=== PATIENT | male | born 1985 | race Caucasian/White ===

== ENCOUNTER 2022-12-16 00:50 | Outpatient (CLI) | payer MEDICAID, SELFPAY ==
--- NOTE | 2022-12-16 | DI.US_ITS ---
Exam(s) US THYROID EXAM: US THYROID CLINICAL HISTORY: THYROID NODULE LEFT E04.1. TECHNIQUE: Ultrasound thyroid performed using standard protocol. COMPARISON: No exams were available for comparison FINDINGS: Both thyroid lobes as well as the isthmus exhibit normal size and echotexture. There are no nodules in either lobe. RIGHT THYROID LOBE: Measures 1.5 cm AP x 1.3 cm wide x 4.4 cm craniocaudal ISTHMUS: Normal thickness. There are no nodules in the isthmus. LEFT THYROID LOBE: Measures 1.3 cm AP x 1.3 wide x 4.3 cm craniocaudal LYMPH NODES: There is no significant adenopathy. IMPRESSION: No significant findings on this thyroid ultrasound examination. Both thyroid lobes exhibit normal si ze and there are no thyroid nodules evident. Thyroid echotexture is also normal. There is no lymphadenopathy evident DATA REPOSITORY:
== END 2022-12-16 01:10 ==
LOC: DI 00:50
PROVIDERS: PCP Physician Assistant; Visit Provider Physician Assistant
DX: E04.1 Nontoxic single thyroid nodule (principal)
CPT/HCPCS: 76536

== ENCOUNTER 2023-04-25 16:10 | Outpatient (REF) | payer MEDICAID, SELFPAY ==
[2023-04-25 16:18] LABS: HCT 48.2 % (40.0-50.0); HGB 16.6 g/dL (13.5-17.5); MCH 29.5 pg (27.0-33.0); MCHC 34.4 % (32.0-36.0); MCV 86 fL (80-95); MPV 11.5 fL (8.0-11.0); Platelet Count 205 10^3/uL (130-400); RBC 5.63 10^6/uL (4.36-5.78); RDW 13.2 % (11.8-14.1); RDW-SD 40.7 fL; WBC 7.04 10^3/uL (4.4-10.8)
[2023-04-25 18:15] LABS: Anion Gap 12.6 mmol/L (3-11); BUN 11 mg/dL (7-18); CO2 24.4 mmol/L (21.0-32.0); CREATININE 0.9 mg/dL (0.70-1.30); Calculated LDL 163 mg/dL (<100); Chloride 105 mmol/L (98-107); Cholesterol 229 mg/dL (<200); Estimated GFR 112.81 (mL/min/1.73m2); Glucose 102 mg/dL (74-106); HDL Cholesterol 49 mg/dL (40-60); Potassium 4.2 mmol/L (3.5-5.1); Sodium 142 mmol/L (136-145); Triglyceride 85 mg/dL (<150)
== END 2023-04-25 16:11 | disposition home or self-care (01) ==
LOC: NCHCN 16:10
PROVIDERS: PCP Physician Assistant; Visit Provider Physician Assistant
DX: I10 Essential (primary) hypertension (principal); E04.1 Nontoxic single thyroid nodule
CPT/HCPCS: 80048; 80061; 85027